=== PATIENT | female | born 1990 | race Native Hawaiian/Other Pacific Islander ===

== ENCOUNTER 2016-08-11 15:51 | Outpatient (CLI) | payer OTHER ==
[~2016-08-11 15:51] MED LIST: ZANTAC 75 PO
[2016-08-11 16:08] LABS: PLATELET COUNT 386 K/uL (152-353)
[2016-08-11 16:32] LABS: POTASSIUM 4.6 mmol/L (3.6-5.2); SODIUM 134 mmol/L (136-145)
== END 2016-08-11 21:09 | disposition home or self-care (01) ==
LOC: LABW 15:51
PROVIDERS: Psychiatry & Neurology Addiction Psychiatry
DX: F31.5 Bipolar disorder, current episode depressed, severe, with psychotic features (principal)
CPT/HCPCS: 36415; 80053; 80061; 80307; 84443; 85027; G0479

== ENCOUNTER 2017-06-01 10:50 | Emergency (ER) | payer OTHER ==
[~2017-06-01] VITALS: Ht 160 cm; Wt 88.0 kg
[2017-06-01 12:14] LABS: PLATELET COUNT 313 K/uL (152-353)
[2017-06-01 12:21] LABS: POTASSIUM 3.1 mmol/L (3.6-5.2); SODIUM 134 mmol/L (136-145)
[2017-06-01 12:45] VITALS: BP 132/84; TEMP 98
== END 2017-06-01 12:45 | disposition home or self-care (01) ==
LOC: ED 10:50
DX: O12.00 Gestational edema, unspecified trimester (principal); F15.10 Other stimulant abuse, uncomplicated
CPT/HCPCS: 36415; 80053; 80307; 81000; 85027; 99284

== ENCOUNTER 2018-03-05 15:59 | Outpatient (CLI) | payer OTHER ==
[2018-03-05 16:12] LABS: PLATELET COUNT 371 K/uL (152-353)
== END 2018-03-05 19:27 | disposition home or self-care (01) ==
LOC: LABW 15:59
PROVIDERS: Physician Assistant Medical
DX: M54.5 Low back pain (principal); F31.9 Bipolar disorder, unspecified; F41.8 Other specified anxiety disorders
CPT/HCPCS: 36415; 80053; 80061; 84436; 84443; 84479; 85027

== ENCOUNTER 2018-11-06 10:23 | Outpatient (CLI) | payer OTHER | END 2018-11-06 19:03 | disposition home or self-care (01) | LOC: US 10:23 | DX: R74.8 Abnormal levels of other serum enzymes (principal) ==

== ENCOUNTER 2019-02-18 14:59 | Outpatient (CLI) | payer OTHER | END 2019-02-18 19:42 | disposition home or self-care (01) | LOC: LABW 14:59 | DX: B18.2 Chronic viral hepatitis C (principal) | CPT/HCPCS: 36415; 87522 ==

== ENCOUNTER 2022-03-08 08:47 | Outpatient (CLI) | payer OTHER | END 2022-03-08 20:29 | disposition home or self-care (01) | LOC: RAD 08:47 | PROVIDERS: ATTEND Nurse Practitioner Family | DX: M54.17 Radiculopathy, lumbosacral region (principal); M25.562 Pain in left knee ==

== ENCOUNTER 2022-04-18 15:53 | Outpatient (CLI) | payer OTHER | END 2022-04-18 20:11 | disposition home or self-care (01) | LOC: RAD 15:53 | PROVIDERS: ATTEND Nurse Practitioner Family | DX: M54.17 Radiculopathy, lumbosacral region (principal); M25.552 Pain in left hip ==